=== PATIENT | female | born 1950 | race African-American/Black ===

== ENCOUNTER 2023-10-08 13:25 | Inpatient (IN) | payer OTHER ==
[~2023-10-08] VITALS: Ht 167.6 cm; Wt 57.2 kg
[2023-10-08 13:33] VITALS: BP 152/79; PULSE 69; RESP 24; TEMP 97.7; O2SAT 99
[2023-10-08] MEDS ORDERED: ONDANSETRON 4 MG/2 ML VIAL ONE (14:40)
[2023-10-08] MEDS: ONDANSETRON 4 MG/2 ML VIAL IVP ONE (14:57)
[2023-10-08] MEDS: NACL 0.9% 1,000 ML IV ONE (14:57)
[2023-10-08] MEDS: fentaNYL citrate 0.05 MG/ML VIAL IVP ONE ×2 (15:08→17:59)
[2023-10-08 15:10] LABS: BASOPHILS # (AUTO) 0.1 K/uL (0.00-0.22); BASOPHILS % (AUTO) 0.6 % (0.0-2.0); EOSINOPHILS % (AUTO) 0.1 % (0.0-4.0); HEMATOCRIT 34.3 % (36-48); HEMOGLOBIN 11.9 g/dL (12.0-16.0); LYMPHOCYTES # (AUTO) 1.9 K/uL (2.5-16.5); MEAN CORPUSCULAR HEMOGLOBIN 32 pg (27-31); MEAN CORPUSCULAR HGB CONC 35 g/dL (33-37); MEAN CORPUSCULAR VOLUME 93.3 fL (80-94); MONOCYTES # (AUTO) 0.4 K/uL (0.8-1.0); MONOCYTES % (AUTO) 4.6 % (1.7-9.3); NEUTROPHILS # (AUTO) 5.4 K/uL (1.8-7.7); NEUTROPHILS % (AUTO) 69.7 % (42.2-75.2); PLATELET COUNT (AUTO) 273 K/uL (140-450); RED BLOOD CELL COUNT(AUTO) 3.68 MIL/uL (4.20-5.40); RED CELL DISTRIBUTION WIDTH 13.7 % (11.6-13.7); WHITE BLOOD COUNT (AUTO) 7.8 K/uL (4.8-10.8)
[2023-10-08 15:27] LABS: ANION GAP 19.3 (8-16); CALCIUM 10.5 mg/dL (8.5-10.1); CARBON DIOXIDE 24.4 mmol/L (21-32); CHLORIDE 99 mmol/L (98-107); CREATININE 1.7 mg/dL (0.6-1.3); GLUCOSE 115 mg/dL (74-106); POTASSIUM 3.7 mmol/L (3.5-5.1); SODIUM SERUM 139 mmol/L (136-145); UREA NITROGEN, BLOOD 17 mg/dL (7-18)
[2023-10-08 15:35] LABS: ALANINE AMINOTRANSFERASE 28 U/L (12-78); ALBUMIN 4.1 g/dL (3.4-5.0); ALKALINE PHOSPHATASE 65 U/L (50-136); ASPARTATE AMINOTRANSFERASE 33 U/L (15-37); BILIRUBIN,DIRECT 0.1 mg/dL (0.0-0.3); LIPASE 24 U/L (16-77); TOTAL BILIRUBIN 1.4 mg/dL (0.0-1.0); TOTAL PROTEIN, SERUM 8.2 g/dL (6.4-8.2)
[2023-10-08] MEDS: METOCLOPRAMIDE 10 MG/2 ML INJ VIAL IVP ONE (15:56)
[2023-10-08 16:35] LABS: APPEARANCE,URINE CLEAR (CLEAR); BILIRUBIN,URINE NEGATIVE (NEGATIVE); BLOOD, URINE NEGATIVE (NEGATIVE); COLOR,URINE YELLOW (YELLOW); LEUKOCYTE ESTERASE ,URINE NEGATIVE (NEGATIVE); NITRITE, URINE NEGATIVE (NEGATIVE); PROTEIN,URINE TRACE (NEGATIVE); UGLUCOSE 3+ (NEGATIVE); UROBILINOGEN,URINE 0.2 EU/dL (0.2 - 1)
[2023-10-08] MEDS ORDERED: CARV6.252 PO (18:07)
[2023-10-08] MEDS ORDERED: SPIR50TA PO (18:09)
[2023-10-08] MEDS ORDERED: ROSU10TA1 PO (18:10)
[2023-10-08] MEDS ORDERED: DAPA10TA PO (18:12)
[2023-10-08] MEDS ORDERED: LISI5TAB24 PO (18:13)
[2023-10-08] MEDS ORDERED: CARV3.12 PO (18:14)
[2023-10-08] MEDS ORDERED: CLOP75TA55 PO (18:16)
[2023-10-08] MEDS ORDERED: [UNRECOGNIZED DRUG - CODE] PO (18:18)
[2023-10-08] MEDS ORDERED: ACETAMINOPHEN 325 MG TAB PO PRN (18:45)
[2023-10-08 20:00] VITALS: BP 157/76; PULSE 52; PULSE 63; RESP 21; TEMP 97.7; O2SAT 99
[2023-10-08] MEDS: NACL 0.9% 1,000 ML IV SCH (20:18)
[2023-10-08] MEDS: MORPHINE SULFATE 2 MG/ML SYR IVP PRN (20:19)
[2023-10-08] MEDS: ONDANSETRON 4 MG/2 ML VIAL IVP PRN (20:40)
[2023-10-08 21:00] VITALS: BP 169/69; PULSE 57; RESP 28; O2SAT 99
[2023-10-08 21:00] LABS: FLU A ANTIGEN negative (NEGATIVE); FLU B ANTIGEN NEGATIVE (NEGATIVE)
[2023-10-08 22:00] VITALS: BP 161/73; PULSE 62; RESP 24; O2SAT 99
[2023-10-08 23:00] VITALS: BP 156/66; PULSE 89; RESP 25; O2SAT 99
[2023-10-09] VITALS (12 sets, daily range): BP systolic 104–176; BP diastolic 52–78; PULSE 58–116; RESP 15–25; TEMP 98–99.4; O2SAT 94–99
[2023-10-09] MEDS ORDERED: hydrALAZINE 20 MG/ML VIAL IVP PRN (00:05)
[2023-10-09 06:52] LABS: BASOPHILS % (AUTO) 0.2 % (0.0-2.0); HEMATOCRIT 31.1 % (36-48); HEMOGLOBIN 10.9 g/dL (12.0-16.0); LYMPHOCYTES # (AUTO) 1.3 K/uL (2.5-16.5); LYMPHOCYTES % (AUTO) 16.2 % (20.5-51.1); MEAN CORPUSCULAR HEMOGLOBIN 33 pg (27-31); MEAN CORPUSCULAR HGB CONC 35 g/dL (33-37); MEAN CORPUSCULAR VOLUME 93.7 fL (80-94); MONOCYTES # (AUTO) 0.8 K/uL (0.8-1.0); MONOCYTES % (AUTO) 10.2 % (1.7-9.3); NEUTROPHILS % (AUTO) 73.4 % (42.2-75.2); PLATELET COUNT (AUTO) 212 K/uL (140-450); RED BLOOD CELL COUNT(AUTO) 3.32 MIL/uL (4.20-5.40); RED CELL DISTRIBUTION WIDTH 13.8 % (11.6-13.7); WHITE BLOOD COUNT (AUTO) 8.2 K/uL (4.8-10.8)
[2023-10-09 07:40] LABS: ALANINE AMINOTRANSFERASE 22 U/L (12-78); ALBUMIN 3.5 g/dL (3.4-5.0); ALKALINE PHOSPHATASE 52 U/L (50-136); ANION GAP 21.3 (8-16); ASPARTATE AMINOTRANSFERASE 23 U/L (15-37); CALCIUM 9.4 mg/dL (8.5-10.1); CARBON DIOXIDE 20.6 mmol/L (21-32); CHLORIDE 106 mmol/L (98-107); CREATININE 1.8 mg/dL (0.6-1.3); GLUCOSE 107 mg/dL (74-106); PHOSPHORUS 4.8 mg/dL (2.5-4.9); POTASSIUM 3.9 mmol/L (3.5-5.1); SODIUM SERUM 144 mmol/L (136-145); TOTAL BILIRUBIN 0.9 mg/dL (0.0-1.0); TOTAL PROTEIN, SERUM 6.9 g/dL (6.4-8.2); UREA NITROGEN, BLOOD 20 mg/dL (7-18)
[2023-10-10] VITALS: BP 160/57; PULSE 64; RESP 18; TEMP 98.9; O2SAT 98
[2023-10-10 01:01] VITALS: PULSE 64
[2023-10-10 04:00] VITALS: BP 154/71; PULSE 66; PULSE 82; RESP 17; TEMP 99.3; O2SAT 98
[2023-10-10 05:35] LABS: BASOPHILS # (AUTO) 0.2 K/uL (0.00-0.22); BASOPHILS % (AUTO) 3.1 % (0.0-2.0); HEMATOCRIT 30.7 % (36-48); HEMOGLOBIN 10.5 g/dL (12.0-16.0); LYMPHOCYTES # (AUTO) 1.2 K/uL (2.5-16.5); LYMPHOCYTES % (AUTO) 16.5 % (20.5-51.1); MEAN CORPUSCULAR HEMOGLOBIN 33 pg (27-31); MEAN CORPUSCULAR HGB CONC 34 g/dL (33-37); MEAN CORPUSCULAR VOLUME 94.9 fL (80-94); MONOCYTES # (AUTO) 0.7 K/uL (0.8-1.0); MONOCYTES % (AUTO) 9.6 % (1.7-9.3); NEUTROPHILS % (AUTO) 70.8 % (42.2-75.2); PLATELET COUNT (AUTO) 230 K/uL (140-450); RED BLOOD CELL COUNT(AUTO) 3.23 MIL/uL (4.20-5.40); WHITE BLOOD COUNT (AUTO) 7.1 K/uL (4.8-10.8)
[2023-10-10 06:13] LABS: ANION GAP 19.5 (8-16); CALCIUM 9.1 mg/dL (8.5-10.1); CARBON DIOXIDE 22.3 mmol/L (21-32); CHLORIDE 106 mmol/L (98-107); CREATININE 1.5 mg/dL (0.6-1.3); GLUCOSE 91 mg/dL (74-106); POTASSIUM 3.8 mmol/L (3.5-5.1); SODIUM SERUM 144 mmol/L (136-145); UREA NITROGEN, BLOOD 22 mg/dL (7-18)
[2023-10-10 08:00] VITALS: BP 153/59; PULSE 57; PULSE 58; PULSE 60; RESP 18; TEMP 97.7; O2SAT 96; O2SAT 98
[2023-10-10] MEDS: lisinopriL 5 MG TAB PO SCH (09:00)
[2023-10-10] MEDS: CLOPIDOGREL 75 MG TAB PO SCH (09:00)
[2023-10-10] MEDS: SPIRONOLACTONE 50 MG TAB PO SCH (09:00)
[2023-10-10 12:00] VITALS: BP 127/57; PULSE 54; RESP 18; TEMP 97.5; O2SAT 99
[2023-10-10 15:22] VITALS: O2SAT 98
== END 2023-10-10 16:05 | disposition home or self-care (01) | DRG 388 ==
LOC: MED 13:25 → MIC 18:52 → MMU 10-09 17:10
PROVIDERS: ADMIT Internal Medicine; ATTEND Internal Medicine
DX: K56.699 Other intestinal obstruction unspecified as to partial versus complete obstruction (principal); N17.0 Acute kidney failure with tubular necrosis; Z20.822 Contact with and (suspected) exposure to COVID-19; Z79.899 Other long term (current) drug therapy; Z90.49 Acquired absence of other specified parts of digestive tract
CPT/HCPCS: 36415; 74250; 80048; 80053; 80076; 81003; 83605; 83690; 83735; 84100; 84484; 85025; 87081; 93005; 96361; 96374; 96375; 99291; J2270; J2405; J2765; J3010; Q0092; Q9967